=== PATIENT | male | born 1990 | race Caucasian/White ===

== ENCOUNTER 2017-04-13 23:01 | Emergency (ER) | payer BC, SELFPAY ==
[2017-04-13 23:09] VITALS: BP 164/74; PULSE 118; RESP 20; TEMP 36.7; O2SAT 98; BMI 51.6
--- NOTE | 2017-04-13 23:20 | XR_ITS ---
XR chest 2V HISTORY: Shortness of air ITS.REASON: soa ORDERING PHYSICIAN: Stewart England MD PATIENT AGE: 27 years COMPARISON: None available FINDINGS: The cardiomediastinal silhouette and pulmonary vascularity are within normal limits. The lungs are clear without infiltrates, suspicious nodules, or pleural effusions. The right hemidiaphragm is slightly elevated No acute bony abnormalities. IMPRESSION: Slightly elevated right hemidiaphragm otherwise negative, no acute finding
--- NOTE | 2017-04-13 23:24 | HMH.EDSOB ---
ED Disposition Clinical Impression: Acute dyspnea Disposition: Home, Self-Care Condition on Discharge: Good Instructions: DI for Shortness of Breath Additional Instructions: call pcp this am Referrals: Selene Ruelas [Referring] - - Critical Care Critical Care Time: No Attestation: On 04/13/17, the high probability of a clinically significant, sudden or life threatening deterioration of the following system(s) required my full and direct attention, intervention and personal management. The time I documented below is in addition to time spent performing reported procedures but includes the following listed in this critical care notation. Medical Decision Making - Medical Records Medical records reviewed: Yes: I reviewed the patient's medical records. Vital Signs: 04/13/17 23:09 04/14/17 00:32 Temperature 98.1 F Temperature Source Oral Pulse Rate [Right Brachial] 118 H 100 H Respiratory Rate 20 18 Blood Pressure [Right Arm] 164/74 123/70 Blood Pressure Mean [Right Arm] 104 87 Blood Pressure Source [Right Arm] Automatic Cuff Blood Pressure Position [Right Arm] Supine 02 Sat by Pulse Oximetry 98 97 Oxygen Delivery Method Room Air Room Air - Lab Data Lab results reviewed: Yes: I reviewed the patient's lab results. Lab Results 04/13/17 23:20: WBC 8.5, RBC 5.08, Hgb 14.7, Hct 44.6, MCV 87.7, MCH 29.0, MCHC 33.0, RDW 13.0, Plt Count 301, MPV 7.3 L, Neut % (Auto) 66.9, Lymph % (Auto) 24.3, [place] % (Auto) 6.3, Eos % (Auto) 2.1, Baso % (Auto) 0.4, Neut # (Auto) 5.7, Lymph # (Auto) 2.1, [place] # (Auto) 0.5, Eos # (Auto) 0.2, Baso # (Auto) 0.0 04/13/17 23:20: Sodium 139, Potassium 3.3 L, Chloride 102, Carbon Dioxide 30, Anion Gap 10.3, BUN 16, Creatinine 0.88, Estimated Creat Clear 112, Estimated GFR 102, Est GFR ( Amer) 124, Glucose 116 H, Calcium 8.6, Total Bilirubin 0.2, AST 22, ALT 48, Alkaline Phosphatase 90, Total Creatine Kinase 265, CK-MB (CK-2) 1.4, CK-MB (CK-2) Rel Index 0.5, Troponin I < 0.02, Total Protein 7.3, Albumin 4.0, Globulin 3.3 H, Albumin/Globulin Ratio 1.2 04/13/17 23:20: D-Dimer < 100 Result diagrams: 04/13/17 23:20 04/13/17 23:20 Orders (Tests/Meds): ED MEDICATIONS Discontinued Medications Generic Name Dose Route Start Last Admin Trade Name [place] PRN Reason Stop Dose Admin Metoprolol Tartrate 2.5 mg 04/13/17 23:26 04/13/17 23:32 Metoprolol Tartrate 5mg/5ml Vial IV 04/13/17 23:27 2.5 mg ONCE ONE Administration ORDERS Category Date Time Status XR chest 2V Stat Exams 04/13/17 23:20 Taken 12-lead EKG Request [ECG Request by /Stacia] Stat Y 04/13/17 23:20 Ordered - Radiology Data #1 Image(s): Chest Image Reviewed: Yes I reviewed the patient's radiology image Preliminary Findings: Normal/NAD - ECG Data Tracing #1 I reviewed this ECG and interpreted as documented below: Normal Sinus Rhythm: Yes Ischemic changes: non-specific ST-T wave changes - Roger Inquiry Pt receiving controlled substance: No Resp/SOB HPI - General Chief Complaint: Shortness of Breath/Dyspnea Stated Complaint: SOA, Elevated heart rate Time Seen by Provider: 04/13/17 23:25 Mode of Arrival: Ambulatory Source of Information: Patient, Parent(s), Medical Record Limitations: No Limitations Description of Symptoms (Recalled from ER Triage Doc. by RN): reports elevated heart rate, soa, and tingling down the left side of face starting at the ear; no other symptoms. denies fever, vomiting or chills. - History of Present Illness wm with facial tingling and elevated hr with no fever or chest pain MD Complaint: shortness of breath Onset (ago): hour(s) Severity: moderate Treatment prior to arrival: none - Related Data Home oxygen amount: none Home Medications Medication Instructions Recorded Confirmed Aspirin [Aspir-Low] 3 tab PO ONCE 04/13/17 04/13/17 Allergies Allergy/AdvReac Type Severity Reaction Status Date / Time Sulfa (Sulfonamide Al
[2017-04-13 23:36] LABS: Basophils % 0.4 % (0.1-2.0); Eosinophils # 0.2 K/mm3 (0.0-0.4); Eosinophils % 2.1 % (0.1-12.0); Hematocrit 44.6 % (42.0-52.0); Hemoglobin 14.7 g/dL (14.1-18.0); Lymphocytes # 2.1 K/mm3 (0.7-4.5); Lymphocytes % 24.3 K/mm3 (10-50); Mean Corpuscular Volume 87.7 fl (80-94); Mean Platelet Volume 7.3 fl (7.4-10.4); Monocytes # 0.5 K/mm3 (0.1-1.0); Monocytes % 6.3 % (1.7-9.3); Neutrophils # 5.7 K/mm3 (1.8-7.8); Neutrophils % 66.9 % (37.0-80.0); Platelet Count 301 K/mm3 (142-424); Red Blood Count 5.08 M/mm3 (4.60-6.20); White Blood Count 8.5 K/mm3 (4.8-10.8)
[2017-04-13 23:58] LABS: Alanine Aminotransferase 48 U/L (12-78); Albumin/Globulin Ratio 1.2 (1.1-1.8); Alkaline Phosphatase 90 U/L (46-116); Anion Gap 10.3 mEq/L (5-15); Aspartate Amino Transferase 22 U/L (15-37); Bilirubin,Total 0.2 mg/dL (0.2-1.0); Blood Urea Nitrogen 16 mg/dL (7-18); CKMB Relative Index 0.5 U/L (0-4.0); Calcium 8.6 mg/dL (8.5-10.1); Carbon Dioxide 30 mmol/L (21.0-32.0); Chloride 102 mmol/L (98-107); Creatine Kinase 265 U/L (39-308); Creatine Kinase MB 1.4 mg/ml (0.0-3.6); Creatinine Clearance Estimated 112 mL/min (0-300); Creatinine,Serum 0.88 mg/dL (0.70-1.30); Estimated Glomerular Filt Rate 102 ml/min (>60); GFR (African American) 124 ML/MIN (>60); Globulin 3.3 gm/dl (1.3-3.2); Glucose 116 mg/dL (74-106); Potassium 3.3 mmoL/L (3.5-5.1); Sodium 139 mmol/L (136-145); Total Protein,Serum 7.3 gm/dL (6.4-8.2); Troponin I < 0.02 ng/ml (0.00-0.06)
[2017-04-14 00:03] LABS: D-Dimer < 100 (0-400)
[2017-04-14 00:32] VITALS: BP 123/70; PULSE 100; RESP 18; O2SAT 97
[2017-04-14 02:03] VITALS: BP 135/57; PULSE 78; RESP 20; TEMP 36.6; O2SAT 99
[2017-04-15 13:38] LABS: Thyroid Stimulating Hormone 6.85 uIU/ml (0.358-3.740)
[2017-04-15 14:46] LABS: Hemoglobin A1C 5.2 % (0.0-7.0)
== END 2017-04-14 02:03 | disposition home or self-care (01) ==
PROVIDERS: Emergency Provider Emergency Medicine; Family Provider Internal Medicine Adolescent Medicine; PCP Internal Medicine Adolescent Medicine
DX: R06.02 Shortness of breath (principal); R00.0 Tachycardia, unspecified; Z79.82 Long term (current) use of aspirin; Z88.2 Allergy status to sulfonamides
CPT/HCPCS: 71046; 80053; 82550; 82553; 83036; 84443; 84484; 85025; 85378; 93005; 96374; 99284

== ENCOUNTER 2017-04-18 09:20 | Emergency (ER) | payer BC, SELFPAY ==
[2017-04-18 09:28] VITALS: BP 188/107; PULSE 88; RESP 20; TEMP 36.9; O2SAT 97; BMI 56.6
[2017-04-18 09:38] VITALS: BP 188/107; PULSE 88; RESP 20; TEMP 36.9; O2SAT 97
[2017-04-18 09:41] VITALS: BP 142/80; PULSE 88; RESP 20; TEMP 36.9; O2SAT 97; BMI 56.6
--- NOTE | 2017-04-18 10:09 | CT_ITS ---
CT head/brain wo con Ordering Physician: Johanna Abraham MD Patient Age: 27 years: Male HISTORY: ITS.REASON: dizziness and HTN TECHNIQUE: Standard CT head without contrast. Bone and brain windows performed and reviewed. No previous studies for comparison. FINDINGS No hemorrhage. No mass or mass lesion. No extra-axial collection. Ventricles appear normal in size with mild asymmetric smaller anterior horn right lateral ventricle, most likely reflecting anatomical variation with no evident underlying mass on the right associated.. The basal cisterns appear clear. The posterior fossa appears satisfactory. CT bone Windows demonstrate the skull to be intact the paranasal sinuses are clear with no air-fluid levels.. Only minimal focal mucosal thickening versus developing retention cyst partially imaged at the lateral floor the right maxillary sinus. The mastoid air cells IACs middle air unremarkable. Survey view orbits unremarkable. IMPRESSION: ======= No acute intracranial findings. No hemorrhage. No mass evident on this noncontrast study..
--- NOTE | 2017-04-18 10:11 | HMH.EDGENADL ---
ED Disposition Clinical Impression: Benign positional vertigo, Hypertension, Obesity Disposition: Home, Self-Care Condition on Discharge: Good Additional Instructions: 1- use rx amtivert and zyrtec over the counter. 2- follow up with pcp on blood pressure and thyroid test results, also reveiw CXR with him/her. 3- keep the appointment for outpatient stress test. 4- return if needed for any reason. 5- off work excuse x 2 days. Prescriptions: Meclizine HCl [Antivert 25mg tablet] 25 mg PO Q8HP PRN #30 tab PRN Reason: Dizziness Referrals: Terry Keys MD [Primary Care Provider] - - Critical Care Critical Care Time: No Attestation: On 04/18/17, the high probability of a clinically significant, sudden or life threatening deterioration of the following system(s) required my full and direct attention, intervention and personal management. The time I documented below is in addition to time spent performing reported procedures but includes the following listed in this critical care notation. Medical Decision Making Vital Signs: 04/18/17 09:28 04/18/17 09:38 04/18/17 09:41 Temperature 98.4 F 98.4 F 98.4 F Temperature Source Temporal Artery Scan Temporal Artery Scan Oral Pulse Rate 88 Pulse Rate [Right Brachial] 88 88 Respiratory Rate 20 20 20 Blood Pressure 188/107 Blood Pressure [Right Arm] 188/107 142/80 Blood Pressure Mean [Right Arm] 134 100 Blood Pressure Source Automatic Cuff Blood Pressure Source [Right Arm] Automatic Cuff Manual Cuff/ Auscultation Blood Pressure Position Sitting Blood Pressure Position [Right Arm] Sitting Supine 02 Sat by Pulse Oximetry 97 97 Oxygen Delivery Method Room Air Room Air Room Air - Lab Data Lab results reviewed: Yes: I reviewed the patient's lab results. Lab Results 04/18/17 10:30: WBC 9.3, RBC 5.24, Hgb 15.0, Hct 45.9, MCV 87.6, MCH 28.6, MCHC 32.7, RDW 13.1, Plt Count 295, MPV 7.0 L, Neut % (Auto) 72.2, Lymph % (Auto) 19.3, [place] % (Auto) 6.4, Eos % (Auto) 1.9, Baso % (Auto) 0.2, Neut # (Auto) 6.7, Lymph # (Auto) 1.8, [place] # (Auto) 0.6, Eos # (Auto) 0.2, Baso # (Auto) 0.0 04/18/17 10:30: D-Dimer < 100 04/18/17 10:30: Sodium 138, Potassium 4.1, Chloride 102, Carbon Dioxide 30, Anion Gap 10.1, BUN 14, Creatinine 0.75, Estimated Creat Clear 122, Estimated GFR 123, Est GFR ( Amer) 149, Glucose 98, Calcium 9.1, Total Bilirubin 0.2, AST 15, ALT 40, Alkaline Phosphatase 85, Troponin I < 0.02, Total Protein 7.6, Albumin 4.0, Globulin 3.6 H, Albumin/Globulin Ratio 1.1, Free T4 1.04 04/18/17 10:30: B-Natriuretic Peptide < 5 04/18/17 10:30: Urine Color Yellow, Urine Appearance Clear, Urine pH 6.0, Ur Specific [place] 1.015, Urine Protein Negative, Urine Glucose (UA) Negative, Urine Ketones Negative, Urine Blood Trace-i, Urine Nitrate Negative, Urine Bilirubin Negative, Urine Urobilinogen 0.2, Ur Leukocyte Esterase Negative, Urine Bacteria Trace Result diagrams: 04/18/17 10:30 04/18/17 10:30 Orders (Tests/Meds): ED MEDICATIONS Discontinued Medications Generic Name Dose Route Start Last Admin Trade Name Freq PRN Reason Stop Dose Admin Sodium Chloride 500 mls @ 999 mls/hr 04/18/17 10:15 04/18/17 11:03 Sod Chlor 0.9% 1000ml Bag IV 04/18/17 10:45 999 mls/hr .Q31M HELADIO Administration Meclizine HCl 25 mg 04/18/17 10:11 04/18/17 11:03 Antivert 25mg Tablet PO 04/18/17 10:12 25 mg ONCE ONE Administration ORDERS Category Date Time Status EKG Request [ECG Request by /Stacia] Stat Y 04/18/17 10:18 Ordered - Radiology Data #1 Image(s): Chest Image Reviewed: Yes I have reviewed radiologist's interpretation Preliminary Findings: Abnormal IMPRESSION: ======= Right lung clear. Less elevation right hemidiaphragm versus prior study. Otherwise stable chest since Since recent 04/13/2017 study.. Again note Linear density at extending from left infrahilar region towards medial LLL.- May merely reflect a comb
--- NOTE | 2017-04-18 10:15 | ED_ITS ---
ED Disposition Clinical Impression: Benign positional vertigo, Hypertension, Obesity Disposition: Home, Self-Care Condition on Discharge: Good Additional Instructions: 1- use rx amtivert and zyrtec over the counter. 2- follow up with pcp on blood pressure and thyroid test results, also reveiw CXR with him/her. 3- keep the appointment for outpatient stress test. 4- return if needed for any reason. 5- off work excuse x 2 days. Prescriptions: Meclizine HCl [Antivert 25mg tablet] 25 mg PO Q8HP PRN #30 tab PRN Reason: Dizziness Referrals: Terry Keys MD [Primary Care Provider] - - Critical Care Critical Care Time: No Attestation: On 04/18/17, the high probability of a clinically significant, sudden or life threatening deterioration of the following system(s) required my full and direct attention, intervention and personal management. The time I documented below is in addition to time spent performing reported procedures but includes the following listed in this critical care notation. Medical Decision Making Vital Signs: 04/18/17 09:28 04/18/17 09:38 04/18/17 09:41 Temperature 98.4 F 98.4 F 98.4 F Temperature Source Temporal Artery Scan Temporal Artery Scan Oral Pulse Rate 88 Pulse Rate [Right Brachial] 88 88 Respiratory Rate 20 20 20 Blood Pressure 188/107 Blood Pressure [Right Arm] 188/107 142/80 Blood Pressure Mean [Right Arm] 134 100 Blood Pressure Source Automatic Cuff Blood Pressure Source [Right Arm] Automatic Cuff Manual Cuff/ Auscultation Blood Pressure Position Sitting Blood Pressure Position [Right Arm] Sitting Supine 02 Sat by Pulse Oximetry 97 97 Oxygen Delivery Method Room Air Room Air Room Air - Lab Data Lab results reviewed: Yes: I reviewed the patient's lab results. Lab Results 04/18/17 10:30: WBC 9.3, RBC 5.24, Hgb 15.0, Hct 45.9, MCV 87.6, MCH 28.6, MCHC 32.7, RDW 13.1, Plt Count 295, MPV 7.0 L, Neut % (Auto) 72.2, Lymph % (Auto) 19.3, [place] % (Auto) 6.4, Eos % (Auto) 1.9, Baso % (Auto) 0.2, Neut # (Auto) 6.7 , Lymph # (Auto) 1.8, [place] # (Auto) 0.6, Eos # (Auto) 0.2, Baso # (Auto) 0.0 04/18/17 10:30: D-Dimer < 100 04/18/17 10:30: Sodium 138, Potassium 4.1, Chloride 102, Carbon Dioxide 30, Anion Gap 10.1, BUN 14, Creatinine 0.75, Estimated Creat Clear 122, Estimated GFR 123, Est GFR ( Amer) 149, Glucose 98, Calcium 9.1, Total Bilirubin 0.2, AST 15, ALT 40, Alkaline Phosphatase 85, Troponin I < 0.02, Total Protein 7.6, Albumin 4.0, Globulin 3.6 H, Albumin/Globulin Ratio 1.1, Free T4 1.04 04/18/17 10:30: B-Natriuretic Peptide < 5 04/18/17 10:30: Urine Color Yellow, Urine Appearance Clear, Urine pH 6.0, Ur Specific [place] 1.015, Urine Protein Negative, Urine Glucose (UA) Negative, Urine Ketones Negative, Urine Blood Trace-i, Urine Nitrate Negative, Urine Bilirubin Negative, Urine Urobilinogen 0.2, Ur Leukocyte Esterase Negative, Urine Bacteria Trace Result diagrams: 04/18/17 10:30 04/18/17 10:30 Orders (Tests/Meds): ED MEDICATIONS Discontinued Medications Generic Name Dose Route Start Last Admin Trade Name Freq PRN Reason Stop Dose Admin Sodium Chloride 500 mls @ 999 mls/hr 04/18/17 10:15 04/18/17 11:03 Sod Chlor 0.9% 1000ml Bag IV 04/18/17 10:45 999 mls/hr .Q31M HELADIO Administration Meclizine HCl 25 mg 04/18/17 10:11 04/18/17 11:03 Antivert 25mg Tabl
--- NOTE | 2017-04-18 10:27 | XR_ITS ---
XR chest 2V Ordering Physician: Johanna Abraham MD Patient Age: 27 years: Male HISTORY: ITS.REASON: dizzinesslightheaded. Hypertension dizzy TECHNIQUE: PA and lateral chest COMPARISON :Previous chest film 2 view 04/13/2017 FINDINGS . A basically stable chest. Since 04/13/2017 . Right chest.: Elevation right hemidiaphragm again noted but less pronounced today right lung remains clear. No acute findings. Left chest. We again see the linear density extending inferior to the left jerome. May likely reflecting a prominent pulmonary vascular structure along with atelectasis and scarring. This is unchanged since previous CXR April 13, 2017.. However if there should be any ongoing chest or ultrasound imaging may want to consider a CT to further evaluate this linear density 2 exclude any other associated features . The heart is normal in size jerome and mediastinal structures unremarkable. No pleural effusion. CP angle and posterior sulcus clear. The ribs and T-spine unremarkable on this survey chest IMPRESSION: ======= Right lung clear. Less elevation right hemidiaphragm versus prior study. Otherwise stable chest since Since recent 04/13/2017 study.. Again note Linear density at extending from left infrahilar region towards medial LLL.- May merely reflect a combination of prominent vascular markings along with atelectasis/scarring. However if there should be ongoing symptoms/ chest symptoms, would suggest CT to further evaluate.
[2017-04-18 10:49] LABS: Microscopic, Urine URINE MICROSCOPIC (MICROSCOPIC)
[2017-04-18 10:52] LABS: Appearance,Urine CLEAR (Clear); Basophils % 0.2 % (0.1-2.0); Bilirubin,Urine Negative (Negative); Blood, Urine TRACE-I (Negative); Color,Urine YELLOW (Yellow); Eosinophils # 0.2 K/mm3 (0.0-0.4); Eosinophils % 1.9 % (0.1-12.0); Glucose,Urine (UA) Negative (Negative); Hematocrit 45.9 % (42.0-52.0); Ketones,Urine Negative (Negative); Leukocyte Esterase,Urine Negative (Negative); Lymphocytes # 1.8 K/mm3 (0.7-4.5); Lymphocytes % 19.3 K/mm3 (10-50); Mean Corpuscular HGB Conc 32.7 g/dL (31.8-35.4); Mean Corpuscular Hemoglobin 28.6 pg (27.0-31.2); Mean Corpuscular Volume 87.6 fl (80-94); Monocytes # 0.6 K/mm3 (0.1-1.0); Monocytes % 6.4 % (1.7-9.3); Neutrophils # 6.7 K/mm3 (1.8-7.8); Neutrophils % 72.2 % (37.0-80.0); Nitrate,Urine Negative (Negative); Platelet Count 295 K/mm3 (142-424); Protein,Urine Negative (Negative); Red Blood Count 5.24 M/mm3 (4.60-6.20); Red Cell Distribution Width 13.1 % (11.5-17.5); Specific Gravity, Urine 1.015 (1.005-1.030); Urobilinogen,Urine 0.2 EU/dl (0.2); White Blood Count 9.3 K/mm3 (4.8-10.8)
[2017-04-18 10:59] LABS: Bacteria,Urine Trace /lpf
[2017-04-18 11:06] LABS: Alanine Aminotransferase 40 U/L (12-78); Albumin/Globulin Ratio 1.1 (1.1-1.8); Alkaline Phosphatase 85 U/L (46-116); Anion Gap 10.1 mEq/L (5-15); Aspartate Amino Transferase 15 U/L (15-37); Bilirubin,Total 0.2 mg/dL (0.2-1.0); Blood Urea Nitrogen 14 mg/dL (7-18); Calcium 9.1 mg/dL (8.5-10.1); Carbon Dioxide 30 mmol/L (21.0-32.0); Chloride 102 mmol/L (98-107); Creatinine Clearance Estimated 122 mL/min (0-300); Creatinine,Serum 0.75 mg/dL (0.70-1.30); Estimated Glomerular Filt Rate 123 ml/min (>60); Free T4 (Free Thyroxine) 1.04 ng/dl (0.76-1.46); GFR (African American) 149 ML/MIN (>60); Globulin 3.6 gm/dl (1.3-3.2); Glucose 98 mg/dL (74-106); Potassium 4.1 mmoL/L (3.5-5.1); Sodium 138 mmol/L (136-145); Total Protein,Serum 7.6 gm/dL (6.4-8.2); Troponin I < 0.02 ng/ml (0.00-0.06)
[2017-04-18 11:07] LABS: D-Dimer < 100 (0-400)
[2017-04-18 11:39] VITALS: BP 140/82; PULSE 78; RESP 18; TEMP 36.6; O2SAT 98
== END 2017-04-18 11:40 | disposition home or self-care (01) ==
LOC: UTC 09:22 → ER 09:40
PROVIDERS: Emergency Provider Emergency Medicine; Family Provider Internal Medicine Adolescent Medicine; PCP Internal Medicine Adolescent Medicine
DX: R42 Dizziness and giddiness (principal); I10 Essential (primary) hypertension; E66.9 Obesity, unspecified; Z68.43 Body mass index [BMI] 50.0-59.9, adult; E03.9 Hypothyroidism, unspecified; Z88.2 Allergy status to sulfonamides
CPT/HCPCS: 70450; 71046; 80053; 81001; 83880; 84439; 84484; 85025; 85378; 96365; 99283; 99284

== ENCOUNTER → 2017-04-21 06:01 | Outpatient (CLI) | payer BC, SELFPAY ==
--- NOTE | 2017-04-21 06:08 | NM_ITS ---
History and Indications: Obesity, hypertension, family history, chest pain, shortness of breath, palpitations. Procedure: Patient exercised on Roger protocol 7 minutes, resting heart rate was 84 beats per resting blood pressure 153/81, with exercise maximum heart rate achieved was 1 72 bpm which is equal to 90% of the maximum predicted heart rate and a blood pressure was 220/80. Test was started due to shortness of breath patient denied complained of chest pain. Patient has adequate exercise capacity achieved 8.5mets of workload on treadmill, the blood pressure response to exercise was hypertensive. Electrocardiogram: Resting electrocardiogram showed sinus rhythm, with exercise there is less than 1.[address] segment depression noted from the baseline EKG. The EKG portion of the exercise Myoview is negative for ischemia. Cardiac stress and resting SPECT images: Cardiac stress and rest SPECT images were obtained using technetium 99 Myoview 10.1 mCi at rest and 31.7 mCi at stress, gated SPECT further analysis of segmental wall motion and calculation of ejection fraction also done. Cardiac stress and rest images show uniform myocardial activity without any segmental perfusion abnormality, computer derived ejection fraction is 60% with no obvious regional wall motion abnormality, right ventricle is normal size and contractility. Conclusion: 1. The EKG portion of the exercise Myoview is negative for ischemia. Patient has adequate exercise capacity, achieved 8.6mets of workload on treadmill, the blood pressure response to exercise was hypertensive. There was no exercise-induced chest discomfort. 2. No obvious scintigraphic evidence of reversible ischemia seen at this level of exercise, computer derived ejection fraction is 60% with no obvious regional wall motion abnormality, right ventricle is normal size and contractility.
== END ==
PROVIDERS: Family Provider Internal Medicine Adolescent Medicine; PCP Internal Medicine Adolescent Medicine; Visit Provider Nurse Practitioner Family
DX: R06.09 Other forms of dyspnea (principal)
CPT/HCPCS: 78452; 93017; A9502

== ENCOUNTER → 2017-11-24 10:05 | Outpatient (CLI) | payer BC, SELFPAY ==
[2017-11-24 11:49] LABS: Alanine Aminotransferase 42 U/L (12-78); Albumin Level 3.8 gm/dL (3.4-5.0); Albumin/Globulin Ratio 1.3 (1.1-1.8); Alkaline Phosphatase 80 U/L (46-116); Anion Gap 10.5 mEq/L (5-15); Aspartate Amino Transferase 25 U/L (15-37); Bilirubin,Total 0.5 mg/dL (0.2-1.0); Blood Urea Nitrogen 8 mg/dL (7-18); Calcium 8.9 mg/dL (8.5-10.1); Carbon Dioxide 31 mmol/L (21.0-32.0); Chloride 104 mmol/L (98-107); Chol/HDL Ratio 4.2 (1-3.5); Cholesterol 169 mg/dL (140-200); Creatinine,Serum 0.71 mg/dL (0.70-1.30); Estimated Glomerular Filt Rate 131 ml/min (>60); Free T4 (Free Thyroxine) 0.97 ng/dl (0.76-1.46); GFR (African American) 159 ML/MIN (>60); Glucose 95 mg/dL (74-106); HDL Cholesterol 40 mg/dL (27-67); LDL Cholesterol 118 mg/dL (0-130); Potassium 4.5 mmoL/L (3.5-5.1); Sodium 141 mmol/L (136-145); Thyroid Stimulating Hormone 2.49 uIU/ml (0.358-3.740); Total Protein,Serum 6.8 gm/dL (6.4-8.2); Triglycerides 56 mg/dL (30-200); VLDL Cholesterol 11 mg/dL (0-40)
== END ==
PROVIDERS: PCP Internal Medicine Adolescent Medicine; Visit Provider Nurse Practitioner Family
DX: Z00.00 Encounter for general adult medical examination without abnormal findings (principal); R79.89 Other specified abnormal findings of blood chemistry; R00.2 Palpitations
CPT/HCPCS: 36415; 80053; 80061; 84439; 84443; 93225; 93226

== ENCOUNTER → 2020-04-08 10:46 | Outpatient (CLI) | payer BC, SELFPAY ==
--- NOTE | 2020-04-08 10:51 | XR_ITS ---
PROCEDURE: XR CHEST PORTABLE CLINICAL HISTORY: COVID OUTPATIENT Shortness of air and cough COMPARISON: CR,CT CXR2V XR chest 2V from 04/13/2017 CR CXR2V XR chest 2V from 04/18/2017 FINDINGS: There are low lung volumes. No definite lobar consolidation or collapse. There are increased markings in the lower lobes which may be due to vascular crowding from the poor inspiration. Unremarkable cardiovascular structures. No acute bony abnormalities. IMPRESSION: No acute findings. Dictated by: Aristides Corley MD 04/08/2020 11:55 Aristides Corley MD in [place] 04/08/2020 11:55
[2020-04-08 11:28] LABS: Adenovirus,PCR Not Detected (NotDetected); Bordetella Pertussis Not Detected (NotDetected); Chlamydophila Pneumoniae, PCR Not Detected (NotDetected); Coronavirus 229E Not Detected (NotDetected); Coronavirus NL63 Not Detected (NotDetected); Coronavirus OC43 Not Detected (NotDetected); Coronovirus HKU1,PCR Not Detected (NotDetected); Human Metapneumovirus Not Detected (NotDetected); Influenza A, PCR Not Detected (NotDetected); Influenza AH1, 2009 Not Detected (NotDetected); Influenza AH1, PCR Not Detected (NotDetected); Influenza AH3,PCR Not Detected (NotDetected); Influenza B, PCR Not Detected (NotDetected); Mycoplasma Pneumoniae, PCR Not Detected (NotDetected); Parainfluenza 1, PCR Not Detected (NotDetected); Parainfluenza 2, PCR Not Detected (NotDetected); Parainfluenza 3, PCR Not Detected (NotDetected); Parainfluenza 4, PCR Not Detected (NotDetected); Respiratory Syncytial Virus Not Detected (NotDetected); Rhinovirus/Enterovirus Not Detected (NotDetected)
[2020-04-08 14:16] LABS: Coronavirus 19, PCR Detected (NotDetected)
== END ==
PROVIDERS: PCP Internal Medicine Adolescent Medicine; Visit Provider Internal Medicine Adolescent Medicine
DX: Z20.822 Contact with and (suspected) exposure to COVID-19 (principal); U07.1 COVID-19; J18.0 Bronchopneumonia, unspecified organism
CPT/HCPCS: 71045; 87581; 87633; 87798

== ENCOUNTER 2022-08-28 14:55 | Emergency (ER) | payer BC, SELFPAY ==
[2022-08-28 15:05] VITALS: BP 189/119; PULSE 116; RESP 18; TEMP 37.1; O2SAT 98; BMI 53.0
--- NOTE | 2022-08-28 15:21 | EXP.UTC ---
Discharge Plan Disposition Patient Disposition: Home, Self-Care Condition: Good Prescriptions Prescriptions: New amlodipine 5 mg tablet 5 mg PO DAILY Qty: 30 0RF No Action levothyroxine 25 MCG tablet 25 mcg PO DAILY meclizine 25 MG tablet 25 mg PO Q8HP PRN (Reason: Dizziness) Qty: 30 0RF Referrals Follow up/Referrals: Terry Keys MD [Primary Care Provider] - See instructions Activity Restrictions/Add. Instructions Additional Instructions/Restrictions: Make sure to follow up with your Family Doctor as scheduled next week for re-evaluation GO STRAIGHT TO ER IF YOU HAVE ANY CHEST PAIN, BLOOD PRESSURE STAYING ELEVATED OR IF YOU HAVE ANY LIFE THREATENING SYMPTOMS Return if needed Straight to ER if any life threatening symptoms Clinical Impressions Clinical Impression: Hypertension Stand Alone Forms Stand Alone Forms: Work/School Release Instructions Patient Instructions: Essential Hypertension, Amlodipine Discharge ED Provider: Bree Mcnally [facility] [place] General Stated complaint: High BP Mode of Arrival: Ambulatory Source of Information: Patient Limitations: No Limitations Time Seen by Provider: 08/28/22 15:21 Description of Symptoms (Recalled from Triage Doc. by RN): PATIENT STATES THAT WHILE AT WORK TODAY HE BECAME DIZZY WITH COLD SWEATS, AND WHEN HE CHECKED HIS BLOOD PRESSURE IT WAS ELEVATED HEENT Symptoms (Recalled from RN notes): No Resp Symptoms (Recalled from RN notes): No Skin Symptoms (Recalled from RN notes): No MS Symptoms (Recalled from RN notes): No Functional Status (Recalled from RN notes): WNL History of Present Illness Provider Complaint: Patient states that he use to be on blood pressure medication a few years ago and he lost weight and stopped taking the medication States that his blood pressure has been elevated on and off for the last few months and he works in the hottest area of the plant at and earlier he felt hot and flush and they checked his blood pressure and it was elevated 190/110 States that they told him he needed to go to the ER but he doesnt want to go over there States that he is not having any headaches, no blurry vision no chest pain States that they just made him come in and get checked Related Data Home Medications Medication Instructions Recorded Confirmed levothyroxine 25 mcg tablet 25 mcg PO DAILY THYROID 04/18/17 04/18/17 Previous Rx's Medication Instructions Recorded meclizine 25 mg tablet 25 mg PO Q8HP PRN Dizziness #30 04/18/17 tabs amlodipine 5 mg tablet 5 mg PO DAILY #30 tabs 08/28/22 Allergies Allergy/AdvReac Type Severity Reaction Status Date / Time Sulfa (Sulfonamide Allergy Intermediate Hives Verified 04/13/17 23:20 Antibiotics) Worker's Comp Is this a Worker's Comp case?: No [facility] Disclaimer: The information contained in this section may have been updated after the patient was seen, as this information can be updated by other users. Social History Smoking Status: Never smoker alcohol intake: never current occupational status: employed Travel in the last 8 weeks: None caffeine: Yes ROS Obtained: Yes All systems reviewed & no additional complaints except as documented and Yes Systems reviewed as appropriate & no additional complaints except as documented Constitutional Constitutional: Reports system reviewed and no additional complaints, except as documented, Reports as per HPI, Denies excessive sweating, Denies headache(s) and Denies lethargy Eyes Eyes: Reports system reviewed and no additional complaints, except as documented, Reports as per HPI, Denies blurry vision and Denies change in vision ENT Ears, Nose, Mouth, and Throat: Denies headache(s) Cardiovascular Cardiovascular: Reports system reviewed and no additional complaints, except as documented, Reports as per HPI, Denies chest pain, Denies chest pain at rest, Denies dyspnea, Denies edema and Denies lightheadedness Respiratory Respi
[2022-08-28 15:33] VITALS: BP 170/100; PULSE 100
[2022-08-28 15:35] VITALS: BP 170/100; PULSE 100; RESP 18; TEMP 37.1; O2SAT 98
== END 2022-08-28 15:37 | disposition home or self-care (01) ==
PROVIDERS: Emergency Provider Nurse Practitioner; PCP Internal Medicine Adolescent Medicine
DX: R42 Dizziness and giddiness (principal); I10 Essential (primary) hypertension
CPT/HCPCS: 99204; 99212; G0463

== ENCOUNTER → 2022-09-05 08:24 | Outpatient (CLI) | payer BC, SELFPAY ==
[2022-09-05 08:46] LABS: Basophils % 0.5 % (0.1-2.0); Eosinophils # 0.1 K/mm3 (0.0-0.4); Eosinophils % 2.3 % (0.1-12.0); Hematocrit 47.8 % (42.0-52.0); Hemoglobin 15.7 g/dL (14.1-18.0); Lymphocytes # 1.4 K/mm3 (0.7-4.5); Lymphocytes % 23.2 % (10-50); Mean Corpuscular HGB Conc 32.8 g/dL (31.8-35.4); Mean Corpuscular Hemoglobin 27.2 pg (27.0-31.2); Mean Platelet Volume 7.5 fl (7.4-10.4); Monocytes # 0.6 K/mm3 (0.1-1.0); Monocytes % 9.5 % (1.7-9.3); Neutrophils # 3.8 K/mm3 (1.8-7.8); Neutrophils % 64.5 % (37.0-80.0); Platelet Count 244 K/mm3 (142-424); Red Blood Count 5.76 M/mm3 (4.60-6.20); Red Cell Distribution Width 13.6 % (11.5-17.5); White Blood Count 5.9 K/mm3 (4.8-10.8)
[2022-09-05 09:06] LABS: Hemoglobin A1C 5.4 % (4.0-6.0)
[2022-09-05 09:10] LABS: Alanine Aminotransferase 49 U/L (12-78); Albumin Level 4.3 g/dl (3.5-5.0); Albumin/Globulin Ratio 1.7 (1.1-1.8); Alkaline Phosphatase 76 U/L (38-126); Anion Gap 9.9 mEq/L (5-15); Aspartate Amino Transferase 48 U/L (17-59); Bilirubin,Total 0.5 mg/dl (0.2-1.3); Blood Urea Nitrogen 12 mg/dl (9-20); Calcium 8.7 mg/dl (8.4-10.2); Carbon Dioxide 30 mmol/L (22.0-30.0); Chloride 104 mmol/L (98-107); Chol/HDL Ratio 4.9 (1-3.5); Cholesterol 123 mg/dl (140-200); Estimated Glomerular Filt Rate 111 ml/min (>60); GFR (African American) 134 ML/MIN (>60); Globulin 2.5 g/dL (1.3-3.2); Glucose 94 mg/dl (74-100); HDL Cholesterol 25 mg/dl (40-60); Potassium 3.9 mmoL/L (3.5-5.1); Sodium 140 mmol/L (136-145); Total Protein,Serum 6.8 g/dl (6.3-8.2); Triglycerides 169 mg/dl (30-150); VLDL Cholesterol 34 mg/dL (0-40)
[2022-09-05 09:21] LABS: Direct LDL Cholesterol 74.49 mg/dL (100-129)
[2022-09-05 09:39] LABS: Thyroid Stimulating Hormone 1.85 uIU/mL (0.465-4.68)
== END ==
PROVIDERS: PCP Internal Medicine Adolescent Medicine; Visit Provider Internal Medicine Adolescent Medicine
DX: I10 Essential (primary) hypertension (principal); E66.01 Morbid (severe) obesity due to excess calories; Z68.43 Body mass index [BMI] 50.0-59.9, adult
CPT/HCPCS: 36415; 80053; 80061; 83036; 84443; 85025